=== PATIENT | female | born 1960 | race Caucasian/White ===

== ENCOUNTER 2023-02-28 14:13 | Outpatient (REF) | payer MEDICAID, SELFPAY ==
[2023-02-28 17:21] LABS: Basophils Absolute Auto 0.1 X10*3/uL (0.0-0.2); Basophils Percent Auto 0.9 % (0-2); Eosinophils Absolute Auto 0.1 X10*3/uL (0.0-0.4); Eosinophils Percent Auto 1.9 % (0-4); Hematocrit 36.1 % (37.0-47.0); Hemoglobin 11.7 g/dl (12.0-16.0); Imm Gran Abs Auto 0.02 X10*3/uL (0.00-0.03); Imm Gran Pct Auto 0.3 % (0.0-0.4); Lymphocytes Absolute Auto 2.3 X10*3/uL (1.2-4.9); Lymphocytes Percent Auto 40.2 % (20-40); MANUAL DIFF FLAG NO; Mean Corpuscular HGB Conc 32.4 g/dl (31.0-35.0); Mean Corpuscular Hemoglobin 31.1 pg (27.0-33.0); Mean Platelet Volume 10.7 fL (9.4-12.3); Monocytes Absolute Auto 0.4 X10*3/uL (0.1-1.2); Monocytes Percent Auto 7.5 % (2-11); Neutrophils Absolute Auto 2.8 x10*3/uL (2.0-8.3); Neutrophils Percent Auto 49.2 % (45-73); Platelet Count 257 X10*3/uL (160-400); Red Blood Count 3.76 X10*6/uL (4.20-5.50); Red Cell Distribution Width 12.1 % (11.0-16.0); White Blood Count 5.8 X10*3/uL (4.8-10.8)
[2023-02-28 20:01] LABS: Iron 76 mcg/dL (30-160); Percent Iron Saturation 29 % (15-50); Total Iron Binding Capacity 266 mcg/dL (228-428); Unsaturated Iron Binding 190 ug/dL
[2023-02-28 20:14] LABS: Ferritin 81 ng/mL (10-250)
[2023-03-01 14:26] LABS: HIV AB/AG Nonreactive (Nonreactive); HIV Num 1 0.05 S/CO (0.00-0.99); ~HepC Num1 0.08 S/CO (0.00-0.79); ~Hepatitis C Antibody Nonreactive (Nonreactive)
== END 2023-02-28 14:14 | disposition home or self-care (01) ==
LOC: HO.CHCLDS 14:13
PROVIDERS: Visit Provider Family Medicine
DX: Z11.4 Encounter for screening for human immunodeficiency virus [HIV] (principal); D50.9 Iron deficiency anemia, unspecified
CPT/HCPCS: 36415; 82728; 83540; 85025; 86803; 87389

== ENCOUNTER → 2023-04-02 07:41 | Outpatient (REF) | payer MEDICAID, SELFPAY ==
--- NOTE | ~2023-04-02 | MM_ITS ---
EXAMINATION: MM SCREENING DIGITAL BREAST TOMOSYNTHESIS, BILATERAL CLINICAL INFORMATION: Screening. Asymptomatic. The patient has a history of right breast surgery in the remote past. . COMPARISON: Mammography: There are no prior mammograms for comparison. TECHNIQUE: Digital breast tomosynthesis is performed in both the craniocaudal and mediolateral oblique views along with computer-aided detection (CAD). Synthesized 2D images are generated from the tomosynthesis. FINDINGS: There are scattered areas of fibroglandular density (ACR BI-RADS breast composition Category b). There is focal asymmetry in the 12:00 position of the right breast at a middle depth. Additional mammographic imaging of this finding is advised. Overall the additional views, a scar marker should be placed on the patient's right breast scar. In the left breast, there are no significant masses, abnormal calcifications, or other abnormalities. MM/MM tomosynthesis screening BI IMPRESSION: Focal asymmetry of the right breast warrants additional mammographic imaging. All of the diagnostic imaging should include a scar marker placed on any scars the patient has on the right breast. ASSESSMENT: BI-RADS BI-RADS 0 - Incomplete: Needs additional Imaging. RECOMMENDATION: 1. Additional views of the right breast. 2. Targeted ultrasound if warranted after review of the additional views. 3. Radiology department staff will contact the patient for additional imaging. Additional Imaging required This examination should not preclude the clinical evaluation of a suspicious palpable abnormality. This patient's information was entered into a reminder system with a target due date for their next mammogram.
== END ==
LOC: HO.CARD 07:41
PROVIDERS: PCP Family Medicine; Visit Provider Family Medicine
DX: Z12.31 Encounter for screening mammogram for malignant neoplasm of breast (principal); R60.0 Localized edema
CPT/HCPCS: 77063; 77067; 93306; 93356

== ENCOUNTER → 2023-04-02 07:44 | Outpatient (BNV) | payer MEDICAID, SELFPAY | PROVIDERS: PCP Family Medicine; Visit Provider Internal Medicine | DX: I34.81 Nonrheumatic mitral (valve) annulus calcification (principal) | CPT/HCPCS: 93306 ==

== ENCOUNTER → 2023-04-02 09:00 | Outpatient (BNV) | payer MEDICAID, SELFPAY | PROVIDERS: PCP Family Medicine; Visit Provider Radiology Diagnostic Radiology | DX: Z12.31 Encounter for screening mammogram for malignant neoplasm of breast (principal) | CPT/HCPCS: 77063; 77067 ==

== ENCOUNTER 2023-04-30 08:17 | Outpatient (REF) | payer MEDICAID, SELFPAY ==
--- NOTE | ~2023-04-30 | MM_ITS ---
EXAMINATION: MM DIAGNOSTIC DIGITAL BREAST TOMOSYNTHESIS, RIGHT US BREAST LIMITED, RIGHT MAMMOGRAPHY: CLINICAL INFORMATION: 62-year-old female, prior history of benign excisional biopsy from right breast superior aspect. Evaluate focal asymmetry in the 12:00 position seen on screening exam. COMPARISON: Mammography: 04/02/2023. TECHNIQUE: Digital breast tomosynthesis is performed involving 3-D spot compression right CC and MLO views. FINDINGS: The breasts are heterogeneously dense, which may obscure small masses (ACR BI-RADS breast composition Category c). In the 12:00 axis of the right breast, there is a parenchymal distortion in keeping with postoperative scarring with central focus of fat necrosis. A scar marker is present traversing the superior right breast. Additionally, in the retroareolar region of the right breast there are a few tubular and nodular foci, most likely duct ectasia. These will both be evaluated by ultrasound. ULTRASOUND: CLINICAL INFORMATION: As above. COMPARISON: No relevant ultrasound. TECHNIQUE: Targeted sonographic evaluation was performed using a high frequency linear transducer. Attention was given to the retroareolar and 12:00 axis right breast. Selected archived documentation. FINDINGS: RIGHT BREAST: Mild scar tissue seen in the 12:00 axis of the right breast with minimal shadowing. No masses, suspicious areas of shadowing or vascularity. No cystic abnormalities. There is retroareolar ductal ectasia without any evidence of intraductal mass or filling defect. There is no edema within the soft tissue planes. There are no suspicious ultrasonographic foci identified. MM/MM tomosynthesis added views R IMPRESSION: Findings in the right breast appear benign and related to prior excisional biopsy and associated scarring. No suspicious foci. There is retroareolar right breast ductal ectasia without evidence of intraductal filling defect. Recommend the patient resume annual routine mammographic screening using this examination as a new baseline. OVERALL ASSESSMENT: Mammography: BI-RADS 2 - Benign Findings Ultrasound: BI-RADS 2 - Benign Findings RECOMMENDATION: 1 year F/U Results were provided to the patient at time of visit by the technologist. This patient's information was entered into a reminder system with a target due date for their next mammogram.
== END 2023-04-30 08:18 | disposition home or self-care (01) ==
LOC: HO.MAMMO 08:17
PROVIDERS: PCP Family Medicine; Visit Provider Family Medicine
DX: N64.89 Other specified disorders of breast (principal)
CPT/HCPCS: 76642; 77061; 77065

== ENCOUNTER → 2023-04-30 08:30 | Outpatient (BNV) | payer MEDICAID, SELFPAY | PROVIDERS: PCP Family Medicine; Visit Provider Radiology Diagnostic Radiology | DX: N60.41 Mammary duct ectasia of right breast (principal) | CPT/HCPCS: 76642; 77061; 77065 ==

== ENCOUNTER 2023-06-03 14:04 | Outpatient (AMB) | payer MEDICAID, SELFPAY ==
--- NOTE | 2023-06-03 14:13 | A.OFFVIS_ITS ---
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 Complaints include pain over varicosities, swelling of lower extremities, cramping, fatigue, and heaviness of the lower extremities. It has been affecting there daily activities including walking and working in a kitchen. It is noted more so in right leg. Patient denies any previous venous surgery or injections. Patient denies any history of DVT/ PE. Patient denies any history of phlebitis. Trial of compression includes - [id number] They now present for vascular evaluation regarding their varicose veins. Review of Systems Const Reports as per HPI ENT Reports no additional complaints Card Denies chest pain, Denies chest pain at rest and Denies chest pain with activity Resp Denies chest congestion and Denies cough GI Reports no additional complaints Musc Details: pain over varicosities, aching of lower extremities, swelling, cramping, heaviness and tiredness, itching Denies abnormal gait Skin/Breast Reports pruritus and Denies wounds Neuro Reports no additional complaints and Denies abnormal gait Psych Denies no additional complaints Physical Exam Vital Signs: BMI result Body Mass Index 27.4 Const General: cooperative, healthy appearing and comfortable Orientation/consciousness: oriented to person, oriented to place and oriented to time Neck Carotids: no bruits Chest Chest palpation & inspection: normal inspection of the chest and normal palpation of entire chest wall Resp Effort & Inspection: normal respiratory effort and able to speak in complete sentences Cardio Rate: regular rate Heart sounds: S1 normal heart sound present and S2 normal heart sound present Peripheral pulses: Peripheral pulses 2+ throughout GI Inspection: Yes normal to inspection Skin Other: +2 edema, large rope-like varicosities greater than 4 mm CEAP Classification C4 - skin color changes Ep - Etiology Primary As - superficial veins P - reflux General skin exam: dry skin Neuro General: oriented to person, oriented to place and oriented to time Extrem Right lower extremity: full ROM, normal capillary refill and edema Left lower extremity: full ROM, normal capillary refill and edema Psych Mental Status: mental status grossly normal Assessment & Plan Assessment & Plan (1) Varicose veins of right lower extremity with inflammation: Code(s): I83.11 - Varicose veins of right lower extremity with inflammation Plan: In short, the patient has evidence of venous insufficiency. I have discussed the pathophysiology with the patient. In addition I have provided informational material regarding venous disease to the patient. We have discussed conservative measures including compression, elevation, and exercise. I have also provided a handout regarding appropriate use of compression stockings and where to purchase good compression stockings as well. I have taken the liberty of ordering venous insufficiency testing with the patient. They will follow up with me after testing. The patient had an opportunity to ask questions regarding the treatment plan. All questions were answered. Imaging studies, laboratory studies and physical exam results were discussed and reviewed in detail. No major barriers to understanding were identified. The patient expressed understanding and agreement with the above treatment plan. The patient is aware they should contact our office by phone for worsening of the current condition or the appearance of new symptoms. Thank you for allowing me to participate in the vascular care of this patient. If you have any questions or concerns regarding the treatment for the above condition please do not hesitate to contact me. The office telephone contact is [phone]. This note is constructed using voice recognition software. While every effort has been made to ensure accuracy, condenser cleaner errors may have been included. Thank you for allowing me to participate in the care of your patient. Yours sincerely, Satish Amaya MD, FACS, R.P.V.I. Orders: Orders US venous duplex LE BI 1 Week I83.11 - Varicose veins of right lower extremity with inflammation Coding Level of Care Code New Pt Level 4 (30125) Diagnoses Varicose veins of right lower extremity with inflammation I83.11
[2023-06-03 14:16] VITALS: BMI 27.4
== END 2023-06-03 15:00 | disposition home or self-care (01) ==
PROVIDERS: PCP Family Medicine; Visit Provider Surgery Vascular Surgery
DX: I83.11 Varicose veins of right lower extremity with inflammation (principal)
CPT/HCPCS: 99203

== ENCOUNTER → 2023-06-03 14:04 | Outpatient (BNVA) | payer MEDICAID, SELFPAY | PROVIDERS: PCP Family Medicine; Visit Provider Surgery Vascular Surgery | DX: I83.11 Varicose veins of right lower extremity with inflammation (principal) | CPT/HCPCS: 99202 ==

== ENCOUNTER 2023-07-15 08:14 | Outpatient (REF) | payer MEDICAID, SELFPAY ==
[2023-07-15 10:29] LABS: Hematocrit 34.6 % (37.0-47.0); Hemoglobin 11.8 g/dl (12.0-16.0); Mean Corpuscular HGB Conc 34.1 g/dl (31.0-35.0); Mean Corpuscular Hemoglobin 31.7 pg (27.0-33.0); Mean Platelet Volume 10.5 fL (9.4-12.3); Platelet Count 219 X10*3/uL (160-400); Red Blood Count 3.72 X10*6/uL (4.20-5.50); Red Cell Distribution Width 11.5 % (11.0-16.0); White Blood Count 5.6 X10*3/uL (4.8-10.8)
[2023-07-15 11:06] LABS: Iron 120 mcg/dL (30-160); Percent Iron Saturation 42 % (15-50); Total Iron Binding Capacity 283 mcg/dL (228-428); Unsaturated Iron Binding 163 ug/dL
[2023-07-15 11:24] LABS: Ferritin 121 ng/mL (10-250)
[2023-07-15 11:28] LABS: Folate 15.6 ng/mL (> or = 4.0); Vitamin B12 526 pg/mL (200-900)
[2023-07-19 14:59] LABS: Vitamin D 25-OH, D2 <4 ng/mL; Vitamin D 25-OH, D3 34 ng/mL; Vitamin D 25-OH, Total 34 ng/mL (30-100)
== END 2023-07-15 08:15 | disposition home or self-care (01) ==
LOC: HO.LAB 08:14
PROVIDERS: PCP Family Medicine; Visit Provider Nurse Practitioner Family
DX: D50.8 Other iron deficiency anemias (principal); K21.9 Gastro-esophageal reflux disease without esophagitis; R74.8 Abnormal levels of other serum enzymes; R19.7 Diarrhea, unspecified; E55.9 Vitamin D deficiency, unspecified
CPT/HCPCS: 36415; 82306; 82607; 82728; 82746; 83540; 85027; 99212

== ENCOUNTER 2023-07-15 08:14 | Outpatient (AMB) | payer MEDICAID, SELFPAY ==
--- NOTE | 2023-07-15 08:21 | A.OFFVIS_ITS ---
Intake Vital Signs 07/15/23 08:41 Height 5 ft 2 in Weight 156 lb 8.451 oz BMI 28.6 BP 137/77 Blood Pressure Location Lt brachial Position Sitting Pulse 89 Intake Visit Reasons: Anemia/iron deficiency Intake Note: Maryjo presents in the office as a new patient for anemia. CC: She states that she eats raisin brand every day and it seems to keep her regular with her bowels. She does get fatigued but she motiates herself to do her yoga and stretches everyday. Reciprocating Drill Operator Required: No Allergies No Known Allergies Allergy (Verified 06/03/23 14:16) HPI Anemia/iron deficiency HPI Details 8-year-old female with past medical hist ory of varicose veins is here today for initial consultation. Patient was sent to us by her PCP. Patient was sent for evaluation of anemia. Hemoglobin 11.7, hematocrit 36.1, MCV 96, MCH 31. Patient reports to be feeling well. Denies any melena, hematochezia, unintentional weight loss or ribbon like stools. Patient denies any dyspepsia, dysphagia or odynophagia. Patient denies any shortness of breath, chest pain. Patient reports that she started taking iron about couple months ago. Patient had Cologuard 1 month ago that was normal. Patient denies any family history of colorectal cancer or polyps. [facility] History (Updated 07/15/23 @ 09:04 by Dyan Tobin, [facility]) Anemia Review of Systems Const Denies weight gain and Denies weight loss ENT Reports no additional complaints, Denies dysphagia and Denies odynophagia Card Reports no additional complaints Resp Reports no additional complaints GI Denies abdominal pain, Denies belching, Denies melena, Denies bloating, Denies change in bowel habits, Denies dysphagia, Denies excessive flatus, Denies dyspepsia, Denies heartburn, Denies diarrhea, Denies loose stools, Denies nausea, Denies odynophagia and Denies vomiting Musc Reports no additional complaints Neuro Reports no additional complaints Psych Reports no additional complaints Endo Reports no additional complaints Physical Exam Vital Signs: Last Vital Signs Pulse 89 07/15/23 08:41 BP 137/77 07/15/23 08:41 BMI result Body Mass Index 28.6 Const General: healthy appearing, no acute distress and well developed Nutritional Appearance: well nourished Orientation/consciousness: patient oriented x3 Resp Effort & Inspection: normal respiratory effort, able to speak in complete sentences, no tracheal deviation and symmetric chest movement Auscultation: clear to auscultation bilaterally Cardio Rate: regular rate GI Inspection: Yes normal to inspection and No distended Palpation (GI): Soft to palpation, not firm, nontender and No hepatosplenomegaly present Auscultation: normal bowel sounds General: Yes no CVA tenderness Back/Spine/Pelvis Back: no CVA tenderness Skin General skin exam: elasticity normal, turgor normal and dry skin Neuro General: patient oriented x3 Psych Appearance: grossly normal Mental Status: mental status grossly normal Results Reviewed Results Reviewed: Laboratory Tests 02/28/23 02/28/23 14:25 Unknown Hgb 11.7 L Hct 36.1 L MCV 96.0 MCH 31.1 Iron 76 TIBC 266 % Saturation 29 Unsat Iron Binding 190 Ferritin 81 Assessment & Plan Assessment & Plan (1) Anemia: Code(s): D64.9 - Anemia, unspecified Qualifiers: Anemia type: iron deficiency Iron deficiency anemia type: inadequate dietary iron intake Qualified Code(s): D50.8 - Other iron deficiency anemias Plan Will recheck patient's blood work today. Given patient's almost normal hemoglobin most likely related to dietary issues patient does admit that she was not eating food rich in iron, however she states that she ate food more bland. List of food high in iron given to patient. Will send patient for Hemoccult testing and if positive patient will go for colonoscopy. She will return to our office in 3 months, sooner on as needed basis. Patient is agreeable to this plan and verbalizes understanding of instructions. She was given the opportunity to ask questions and all questions answered. Thank you for allowing me to participate in her care Orders: Orders Complete Blood Count no Diff Today K21.9 - Gastro-esophageal reflux disease without esophagitis Vitamin B12 and Folate Today R19.7 - Diarrhea, unspecified Vitamin D 25-OH (D2 and D3) Today E55.9 - Vitamin D deficiency, unspecified AMB Fecal Immunochemical Test Today Z12.11 - Encounter for screening for malignant neoplasm of colon IRON PROFILE Today D64.9 - Anemia, unspecified Ferritin Today R74.8 - Abnormal levels of other serum enzymes Coding Level of Care Code New Pt Level 3 (80740) Diagnoses Iron deficiency anemia secondary to inadequate dietary iron intake D50.8 Anemia type: iron deficiency Iron deficiency anemia type: inadequate dietary iron intake Time Spent (min) 40 Comment 30 minutes spent with patient and additional 10 minutes spent reviewing her records
[2023-07-15 08:41] VITALS: BP 137/77; PULSE 89; BMI 28.6
== END 2023-07-15 09:15 | disposition home or self-care (01) ==
PROVIDERS: PCP Family Medicine; Visit Provider Nurse Practitioner Family
DX: D50.8 Other iron deficiency anemias (principal)
CPT/HCPCS: 99203

== ENCOUNTER 2023-08-01 | Outpatient (REF) | payer MEDICAID, SELFPAY ==
[2023-08-06 13:44] LABS: FIT Int Ctl YES; FIT1 NEGATIVE (NEGATIVE); FIT2 NEGATIVE (NEGATIVE)
== END 2023-08-01 00:01 | disposition home or self-care (01) ==
LOC: HO.LNP
PROVIDERS: Visit Provider Nurse Practitioner Family
DX: Z11.2 Encounter for screening for other bacterial diseases (principal)
CPT/HCPCS: 82274

== ENCOUNTER 2023-08-06 11:45 | Outpatient (REF) | payer MEDICAID, SELFPAY | END 2023-08-06 11:46 | disposition home or self-care (01) | LOC: HO.LNP 11:45 | PROVIDERS: Visit Provider Nurse Practitioner Family | DX: Z13.89 Encounter for screening for other disorder (principal) ==

== ENCOUNTER 2023-08-26 09:34 | Outpatient (REF) | payer MEDICAID, SELFPAY ==
[2023-08-26 15:09] LABS: TSH reflex Free T4 1.27 uIU/mL (0.32-4.0)
== END 2023-08-26 09:35 | disposition home or self-care (01) ==
LOC: HO.CHCLDS 09:34
PROVIDERS: Visit Provider Family Medicine
DX: E03.9 Hypothyroidism, unspecified (principal)
CPT/HCPCS: 36415; 84443

== ENCOUNTER 2023-10-17 07:45 | Outpatient (AMB) | payer MEDICAID, SELFPAY ==
--- NOTE | 2023-10-17 07:55 | MHC.OFFVIS ---
Vital Signs 10/17/23 07:57 Height 5 ft 2 in Weight 152 lb BMI 27.8 BP 109/67 Blood Pressure Location Lt brachial Position Sitting Pulse 82 Intake Visit Reasons: Anemia, 3 Month Follow Up Intake Note: Patient follow up for Anemia. Patient cc: slight constipation. Chief Procurement Officer Required: No Accompanied by: Self / Same As Patient Allergies No Known Allergies Allergy (Verified 10/17/23 08:01) HPI HPI Anemia, 3 Month Follow Up: Details: LAST VISIT Plan Will recheck patient's blood work today. Given patient's almost normal hemoglobin most likely related to dietary issues patient does admit that she was not eating food rich in iron, however she states that she ate food more bland. List of food high in iron given to patient. Will send patient for Hemoccult testing and if positive patient will go for colonoscopy. She will return to our office in 3 months, sooner on as needed basis. Patient is agreeable to this plan and verbalizes understanding of instructions. She was given the opportunity to ask questions and all questions answered. ? Thank you for allowing me to participate in her care Orders Orders Complete Blood Count no Diff Today K21.9 Vitamin B12 and Folate Today R19.7 Vitamin D 25-OH (D2 and D3) Today E55.9 AMB Fecal Immunochemical Test Today Z12.11 IRON PROFILE Today D64.9 Ferritin Today R74.8 TODAY'S VISIT: Patient is here today for follow-up and to discuss lab results. Patient continue to have normal iron levels, mildly anemic. Hemoccults done and negative. Patient reports that she had patient Cologuard done few months ago and it was normal. We will get the results from her PCP. Patient denies any melena, hematochezia, unintentional weight loss or ribbon like stools. Patient would rather wait to get the colonoscopy. Patient denies any GI concerning symptoms. Occasional constipation, however patient is usually drinking more fluids or trying more fiber when she is constipated. [facility] Medical History (Updated 07/15/23 @ 09:04 by Dyan Tobin [facility]) Anemia Review of Systems Const Denies weight gain and Denies weight loss ENT Reports no additional complaints, Denies dysphagia and Denies odynophagia Card Reports no additional complaints Resp Reports no additional complaints GI Denies abdominal pain, Denies belching, Denies melena, Denies bloating, Denies change in bowel habits, Reports constipation (Occasional), Denies dysphagia, Denies excessive flatus, Denies dyspepsia, Denies heartburn, Denies diarrhea, Denies loose stools, Denies nausea, Denies odynophagia and Denies vomiting Reports no additional complaints Musc Reports no additional complaints Neuro Reports no additional complaints Psych Reports no additional complaints Endo Reports no additional complaints Physical Exam Const General: healthy appearing, no acute distress and well developed Nutritional Appearance: well nourished Orientation/consciousness: patient oriented x3 Resp Effort & Inspection: normal respiratory effort, able to speak in complete sentences, no tracheal deviation and symmetric chest movement Auscultation: clear to auscultation bilaterally Cardio Rate: regular rate GI Inspection: Yes normal to inspection and No distended Palpation (GI): Soft to palpation, not firm, nontender and No hepatosplenomegaly present Auscultation: normal bowel sounds General: Yes no CVA tenderness Back/Spine/Pelvis Back: no CVA tenderness Skin General skin exam: elasticity normal, turgor normal and dry skin Neuro General: patient oriented x3 Psych Appearance: grossly normal Mental Status: mental status grossly normal Results Reviewed Results Reviewed: Laboratory Tests 07/15/23 08/01/23 09:35 Unknown RBC 3.72 L Hgb 11.8 L Hct 34.6 L MCV 93.0 Vitamin B12 526 25-OH Vitamin D Total 34 Folate 15.6 Fecal Immunochem Test NEGATIVE FIT Diagnostic NEGATIVE Laboratory Tests 07/15/23 09:35 Plt Count 219 Iron 120 TIBC 283 % Saturation 42 Unsat Iron Binding 163 Ferritin 121 Assessment & Plan Assessment & Plan (1) Anemia: Code(s): D64.9 - Anemia, unspecified Category: Medical Qualifiers: Anemia type: iron deficiency Iron deficiency anemia type: inadequate dietary iron intake Qualified Code(s): D50.8 - Other iron deficiency anemias (2) Constipation: Code(s): K59.00 - Constipation, unspecified Qualifiers: Constipation type: slow transit constipation Qualified Code(s): K59.01 - Slow transit constipation Plan Patient will follow-up in our office on as needed basis. Patient is declining colonoscopy at this time. Reports she had a normal Cologuard and her last Hemoccult was negative for any blood. Patient denies melena, hematochezia, unintentional weight loss or ribbon like stools. Will call our office if she will change her mind. Request for Cologuard results sent to her PCP. Patient is agreeable to current plan and verbalizes understanding of instructions. She was given the opportunity to ask questions and all questions answered. Thank you for allowing me to participate in her care
[2023-10-17 07:57] VITALS: BP 109/67; PULSE 82; BMI 27.8
== END 2023-10-17 09:25 | disposition home or self-care (01) ==
PROVIDERS: PCP Family Medicine; Visit Provider Nurse Practitioner Family
DX: D50.8 Other iron deficiency anemias (principal); K59.01 Slow transit constipation
CPT/HCPCS: 99213

== ENCOUNTER → 2023-10-17 07:45 | Outpatient (BNVA) | payer MEDICAID, SELFPAY | PROVIDERS: PCP Family Medicine; Visit Provider Nurse Practitioner Family | DX: D50.8 Other iron deficiency anemias (principal); K59.01 Slow transit constipation | CPT/HCPCS: 99212 ==

== ENCOUNTER 2025-01-07 08:09 | Outpatient (REF) | payer OTHER, SELFPAY ==
--- NOTE | ~2025-01-07 | MM_ITS ---
EXAMINATION: MM SCREENING DIGITAL BREAST TOMOSYNTHESIS, BILATERAL CLINICAL INFORMATION: Screening. Asymptomatic. COMPARISON: Mammography: Comparison is made with available priors TECHNIQUE: Digital breast mammography with tomosynthesis is performed in both the craniocaudal and mediolateral oblique views along with computer-aided detection (CAD). FINDINGS: The breasts are heterogeneously dense, which may obscure small masses (ACR BI-RADS breast composition Category c). Right breast postsurgical changes are stable. There are no significant masses, abnormal calcifications, or other abnormalities. MM/MM tomosynthesis screening BI IMPRESSION: No mammographic evidence of malignancy. ASSESSMENT: BI-RADS BI-RADS 2 - Benign Findings RECOMMENDATION: Routine annual mammography screening. 1 year F/U This examination should not preclude the clinical evaluation of a suspicious palpable abnormality. This patient's information was entered into a reminder system with a target due date for their next mammogram. Electronically signed by: Shawanda Salgado DO 01/21/2025 01:51 PM EDT
--- NOTE | ~2025-01-07 | XR_ITS ---
EXAMINATION: XR KNEE, LEFT CLINICAL INFORMATION: pain COMPARISON: None available. TECHNIQUE: AP oblique lateral and sunrise views of the left knee. FINDINGS: There is joint space narrowing involving mostly the medial compartment with sclerosis and subchondral cyst formation along the articular surface of the tibial plateau and femoral condyle. Small marginal osteophyte formation and lateral femoral condyle and lateral tibial plateau. There is an osteophyte formation in the anterior femoral condyle. No suprapatellar bursa joint effusion. No acute cortical disruption or malalignment. 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 Electronically signed by: Yury Cruz MD 01/07/2025 09:05 AM EDT
--- OUTSIDE RECORDS SUMMARY | 2025-01-07 08:12 | XMS_ITS | Encounter Summary ---
Author Organization [employer] Address [address] [place] [address] Care Team Providers Care Installment Account Checker Name Role Phone Christi Bah MD Primary Care Provider Reason for Visit * Reason Onset Date Comments New Patient Appt 01/30/2023 Encounter Details Date Type Department Care Team ([facility] st Contact Info) Description 01/30/2023 Telephone [facility] [address] [place] [address] Christi Bah MD [address] [place] [id number] New Patient Appt Social History Tobacco Use Types Packs/Day Years Used Date Smoking Tobacco: Never Smokeless Tobacco: Never Alcohol Use Standard Drinks/Week Comments Not Currently 0 (1 standard drink = 0.6 oz pur e alcohol) Comments Unknown Sex and Gender Information Value Date Recorded Sex Assigned at Female 2022 1:50 PM EDT Legal Sex Female 1:48 PM EDT Gender Identity Female 2022 1:50 PM EDT Sexual Orientation Don't know 2022 1: 50 PM EDT documented as of this encounter Miscellaneous Notes * Telephone Encounter - Tom Lew - 01/30/2023 10:30 AM EDT PAR Tom Moore called pt to Offer PACKAGE SORTER appt. Pt demographics and insurance information were verified. Pt reports the following medical conditions: Thyroid Pt is currently taking medication: Ascorbic Acid (vitamin C) 250 MG tablet, estradiol (Estrace) 1 MG tablet, Iron, Ferrous Sulfate, 325 (65 Fe) MG tablet, and levothyroxine (Synthroid, Levoxyl) 100 MCG tablet. Pt given PACKAGE SORTER appt with Dr. Bah on 02/28/2023. Pt will be sent appt reminder card and medical release form and agrees to complete and to return to medical records prior to PACKAGE SORTER appt. documented in this encounter Plan of Treatment Upcoming Encounters Date Type Department Care Team (Late st Contact Info) Description 03/15/2025 10:45 AM EDT Office Visit [facility] [address], [place] [phone] Ginger Mina MD [address], [place] [phone] documented as of this encounter Visit Diagnoses Not on filedocumented in this encounter Care Teams Installment Account Checker Relationship Specialty Start Date End Date Christi Bah MD [address] [place] [phone] PCP - General Family Medicine 02/28/23 documented as of this encounter
[2025-01-07 08:50] LABS: MANUAL DIFF FLAG NO
[2025-01-07 09:23] LABS: Hematocrit 36.7 % (37.0-47.0); Hemoglobin 12.6 g/dl (12.0-16.0); Imm Gran Abs Auto 0.04 X10*3/uL (0.00-0.03); Imm Gran Pct Auto 0.6 % (0.0-0.4); Lymphocytes Absolute Auto 2.1 X10*3/uL (1.2-4.9); Mean Corpuscular HGB Conc 34.3 g/dl (31.0-35.0); Mean Corpuscular Hemoglobin 30.2 pg (27.0-33.0); Mean Corpuscular Volume 88.0 fL (80.0-98.0); NRBC Abs Auto 0.000 X10*3/uL (0.0-0.012); NRBC Pct Auto 0.0 /100WBC (0.0-0.2); Platelet Count 269 X10*3/uL (160-400); Red Blood Count 4.17 X10*6/uL (4.20-5.50); White Blood Count 6.4 X10*3/uL (4.8-10.8)
[2025-01-07 10:06] LABS: Alanine Aminotransferase 18 U/L (0-31); Albumin Level 4.5 g/dL (3.5-5.0); Alkaline Phosphatase 73 U/L (39-117); Anion Gap 13 (12-20); Aspartate Amino Transferase 22 U/L (5-31); Blood Urea Nitrogen 28 mg/dL (9-16); Calcium 10.2 mg/dL (8.4-10.2); Carbon Dioxide 22 mmol/L (22-29); Chloride 108 mmol/L (96-108); Cholesterol 222 mg/dL (<200); Estimated Glomerular Filt Rate > 60; HDL Cholesterol 69 mg/dL (>40); Potassium 3.9 mmol/L (3.3-5.1); Sodium 139 mmol/L (135-145); Total Protein 7.1 g/dL (6.5-8.0); Triglycerides 86 mg/dL (<150)
[2025-01-07 10:59] LABS: Free T4 (Free Thyroxine) 1.26 ng/dL (0.71-1.85)
== END 2025-01-07 08:10 | disposition home or self-care (01) ==
LOC: HO.MAMMO 08:09
PROVIDERS: PCP Family Medicine; Visit Provider Family Medicine
DX: Z12.31 Encounter for screening mammogram for malignant neoplasm of breast (principal); E66.9 Obesity, unspecified; M17.12 Unilateral primary osteoarthritis, left knee
CPT/HCPCS: 36415; 73564; 77063; 77067; 80053; 80061; 84439; 84443; 85025

== ENCOUNTER → 2025-01-07 08:50 | Outpatient (BNV) | payer OTHER, SELFPAY | PROVIDERS: PCP Family Medicine; Visit Provider Radiology Diagnostic Radiology | DX: M17.12 Unilateral primary osteoarthritis, left knee (principal) | CPT/HCPCS: 73564 ==